=== PATIENT | male | born 1990 | race Caucasian/White ===

== ENCOUNTER 2019-01-25 12:43 | Emergency (ER) | payer MEDICAID ==
[2019-01-25] MEDS ORDERED: TDAP ADULT 0.5 ML INJ (BOOSTRIX) IM ONE (12:50)
--- NOTE | 2019-01-25 12:50 | EDPHY ---
H & P Time Seen by Provider: 01/25/19 12:43 HPI/ROS: CHIEF COMPLAINT: Seizure and chin laceration HISTORY OF PRESENT ILLNESS: Seizure disorder, has them about once a week, had another seizure today and cut his chin open. Therefore he is transported to the emergency department for evaluation. The patient says is feels sore all over. Patient says his jaw hurts and his neck hurts. Currently denies weakness or numbness in extremities or chest pain or shortness of breath. REVIEW OF SYSTEMS: Eye: no change in vision ENT: Jaw pain and difficulty with his bite. Cardiac: no chest pain or syncope Pulmonary: no cough or SOB Abdomen: no vomiting, diarrhea, abdominal pain Musculoskeletal: HPI Skin: Chin laceration Neuro: Mild headache, according to EMS the patient's seizures have become slightly more frequent and lasting longer per [facility]. Constitutional: no fever : no urinary symptoms A comprehensive 10 point review of systems is otherwise negative aside from elements mentioned in the history of present illness. PAST MEDICAL HISTORY: Seizure disorder, includes electrical implant left chest for vagus nerve stimulator. Social history: Resident at [facility]. General Appearance: Alert and conversant, cooperative. Eyes: No scleral icterus. Pupils equal reactive extraocular motion intact. ENT, Mouth: Patient has difficulty with clenching his teeth together but no intraoral bleeding. Respiratory: Normal respiratory effort, breath sounds equal, lungs are clear to auscultation. Cardiovascular: Regular rate and rhythm. Gastrointestinal: Abdomen is soft and non tender. Neurological: Alert, face symmetric, normal motor and sensory in extremities. Not tremulous. Follows commands. Appears oriented at this time. Skin: open chin laceration Musculoskeletal: No extremity or spinal tenderness except for mid cervical spine. Psychiatric: Not agitated. Emergency Department course/MDM: Attempted to anesthetize chin laceration but patient did not tolerate the injection initially, topical LET applied. Cervical spine CT and facial CT performed for trauma, head CT for worsening seizures. See note by Keyana ROJAS for laceration repair. 1502: Normal head and cervical spine CT per Dr. Blount, right sided jaw condylar fracture 2 mm displacement. Results discussed with the patient at this time. He seems comfortable. No intraoral bleeding. Phone consultation with oral surgery. 1525: Discussed with Dr. Sepulveda, recommends can be discharged, will be seen in office tomorrow for evaluation and possible definitive treatment. Confirmed [facility] can arrange transport. (Андрей Sy) Constitutional: Initial Vital Signs Temperature (C) 36.8 C 01/25/19 12:49 Heart Rate 73 01/25/19 12:49 Respiratory Rate 18 01/25/19 12:49 Blood Pressure 123/61 H 01/25/19 12:49 O2 Sat (%) 97 01/25/19 12:49 O2 Delivery Mode Room Air Allergies/Adverse Reactions: apple Allergy (Verified 01/25/19 12:52) Home Medications: Medication Instructions Recorded Aleve 01/25/19 Ativan 01/25/19 LaMICtal 01/25/19 Ranitidine HCl 01/25/19 Rizatriptan 01/25/19 Tizanidine HCl 01/25/19 Medical Decision Making - Diagnostics Imaging: Discussed imaging studies w/ order desk caller Radiologist - Diagnostics Imaging Results: Imaging Impressions Cervical Spine CT 01/25/19 12:55 Impression: 1. No definite cervical spine fracture. 2. If there is persistent pain or neurological deficit, recommend MR cervical spine and consider flexion and extension views, if clinically indicated. 3. Right mandibular condyle fracture. 4. Right anterior external auditory canal wall fracture. Findings and recommendations discussed with Emergency Department physician, Андрей Sy M.D., at 1500 hours, on January 25, 2019. Final report concurs with initial preliminary interpretation. Face CT 01/25/19 12:55 Impression: 1. Right mandibular condyle slightly displaced neck fracture. 2. Right mastoid bone anterior corner 5 mm fracture of the anterior wall of the external auditory canal. 3. Depressed comminuted bilateral nasal bone fracture. Findings and recommendations discussed with Emergency Department physician, АНДРЕЙ SY at 1500 hour, 01/25/2019. Final report concurs with initial preliminary interpretation. Head CT 01/25/19 12:55 Impression: 1. No intracranial hemorrhage or mass effect. 2. Right mandibular condyle slightly displaced neck fracture. 3. Right mastoid anterior corner 5-mm fracture of the anterior wall of the external auditory canal. 4. Depressed comminuted bilateral nasal bone fracture. Findings and recommendations discussed with Emergency Department physician, Андрей Sy M.D., at 1500 hours, on January 25, 2019. Final report concurs with initial preliminary interpretation. Procedures: Procedure: Laceration repair. I was requested by to perform wound closure I explained the indications, risks and benefits for both laceration repair and anesthetic administration. Verbal consent was obtained from the patient. The 3 cm laceration on the chin was anesthetized using 0.5% bupivicaine with epinephrine. After anesthetic administered the patient was observed for a period of time and had no apparent adverse effects. The wound was cleaned, prepped, draped in normal sterile fashion and explored to its base. No foreign body seen, no foreign bodies palpated. The wound was repaired with 8 simple interrupted 6 0 Prolene sutures. The wound repair was complex. The procedure was performed by myself. Patient has been informed that scarring will occur, although efforts have been made to minimize this. (Omid Houston) ED Course/Re-evaluation: 4:20 p.m., called the bedside. Physician certified surgical tech/first assistant Pradip melo was revising laceration repair went patient had a breakthrough seizure. He has a known history of seizure disorder with frequent breakthrough seizures. Patient had tonic-clonic activity lasting 2-3 minutes. Nursing staff had 2 mg of Ativan at the bedside on my arrival. This was given IM. Report to [facility] had been called for transport back to this facility. 5:30 p.m., the patient was re-evaluated, he was sleeping but easily arousable. Vital signs reviewed. Pulse oximetry is 94% on room air. Blood pressure 128/ 73. Heart rate of 92. Repeat neurologic Assessment is nonfocal. Transport from [facility] is currently at the bedside. They feel comfortable transporting him back to [facility]. [facility] staff have been alerted that he did have a seizure here in the emergency department. They will at meet transport on arrival and help with transfer of the patient into their facility. The staff at [facility] feel comfortable excepting this patient for return to their facility. The patient's remaining emergency department course under my care has been uneventful. The patient was discharged as above in good condition. (Mary Kate Downey) - Data Points Laboratory Results: Laboratory Results 01/25/19 12:45 01/25/19 12:45 01/25/19 01/25/19 12:45 12:45 WBC 8.58 10^3/uL 10^3/uL (3.80-9.50) RBC 4.66 10^6/uL 10^6/uL (4.40-6.38) Hgb 14.6 g/dL g/dL (13.7-17.5) Hct 44.9 % % (40.0-51.0) MCV 96.4 fL fL (81.5-99.8) MCH 31.3 pg pg (27.9-34.1) MCHC 32.5 g/dL g/dL (32.4-36.7) RDW 13.2 % % (11.5-15.2) Plt Count 262 10^3/uL 10^3/uL (150-400) MPV 10.2 fL fL (8.7-11.7) Neut % (Auto) 49.9 % % (39.3-74.2) Lymph % (Auto) 39.3 % % (15.0-45.0) [place] % (Auto) 6.2 % % (4.5-13.0) Eos % (Auto) 3.5 % % (0.6-7.6) Baso % (Auto) 0.9 % % (0.3-1.7) Nucleat RBC Rel Count 0.0 % % (0.0-0.2) Absolute Neuts (auto) 4.28 10^3/uL 10^3/uL (1.70-6.50) Absolute Lymphs (auto) 3.37 10^3/uL H 10^3/uL (1.00-3.00) Absolute Monos (auto) 0.53 10^3/uL 10^3/uL (0.30-0.80) Absolute Eos (auto) 0.30 10^3/uL 10^3/uL (0.03-0.40) Absolute Basos (auto) 0.08 10^3/uL 10^3/uL (0.02-0.10) Absolute Nucleated RBC 0.00 10^3/uL 10^3/uL (0-0.01) Immature Gran % 0.2 % % (0.0-1.1) Immature Gran # 0.02 10^3/uL 10^3/uL (0.00-0.10) Sodium 138 mEq/L mEq/L (135-145) Potassium 4.5 mEq/L mEq/L (3.5-5.2) Chloride 102 mEq/L mEq/L (97-110) Carbon Dioxide 18 mEq/l L mEq/l (22-31) Anion Gap 18 mEq/L H mEq/L (6-14) BUN 16 mg/dL mg/dL (7-23) Creatinine 0.9 mg/dL mg/dL (0.7-1.3) Estimated GFR > 60 Glucose 97 mg/dL mg/dL (70-100) Calcium 9.4 mg/dL mg/dL (8.5-10.4) Valproic Acid 65.0 mcg/mL mcg/mL (50.0-150.0) Medications Given: Discontinued Medications Acetaminophen (Tylenol) 650 mg PO EDNOW ONE Stop: 01/25/19 13:40 Last Admin: 01/25/19 13:42 Dose: 650 mg Diphtheria/Tetanus/Acell Pertussis (Boostrix) 0.5 ml IM .ONCE ONE Stop: 01/25/19 12:51 Last Admin: 01/25/19 13:10 Dose: 0.5 ml Lorazepam (Ativan Injection) 2 mg IM EDNOW ONE Stop: 01/25/19 16:26 Last Admin: 01/25/19 16:29 Dose: 2 mg Tetracaine/Epinephrine/Lidocaine (Let Gel Topical) 1 ea TP EDNOW ONE Stop: 01/25/19 12:56 Last Admin: 01/25/19 13:42 Dose: 1 ea Departure - Departure Disposition: Home, Routine, Self-Care Clinical Impression: Seizure disorder, Breakthrough seizure Laceration of chin Qualifiers: Encounter type: initial encounter Qualified Code(s): S01.81XA - Laceration without foreign body of other part of head, initial encounter Fracture, jaw closed, angle Qualifiers: Encounter type: initial encounter Laterality: right Qualified Code(s): S02.651A - Fracture of angle of right mandible, initial encounter for closed fracture Condition: Good Instructions: Laceration (ED), Jaw Fracture in Adults (ED), Epilepsy (ED) Additional Instructions: Wound Care Follow-Up: Removal of sutures in 5 days. Suture removal is complimentary in uncomplicated cases. Infection or abnormal findings would require reevaluation by the MD. In that case, you may be billed. Jaw fracture right side; soft diet until instructed otherwise by Dr. Sepulveda. See him in the office tomorrow for treatment of your jaw fracture. Referrals: CLARI SOLORZANO [Primary Care Provider] - As per Instructions Ovi Sepulveda DDS [Doctor of Dental Surgery] - As per Instructions
[2019-01-25] MEDS ORDERED: LET GEL TOPICAL 1 EA SYR TP ONE (12:55)
[2019-01-25 13:04] LABS: PLATELET COUNT 262 10^3/uL (150-400)
[2019-01-25] MEDS ORDERED: ACETAMINOPHEN 325 MG TAB PO ONE (13:39)
[2019-01-25] MEDS ORDERED: LORazepam 2 MG/ML INJ ONE (16:18)
[2019-01-25] MEDS ORDERED: LORazepam 2 MG/ML INJ IM ONE ×2 (16:25)
[2019-01-25 17:39] VITALS: BP 105/77
--- NOTE | 2019-01-26 11:21 | ASMTCMCOM ---
CM Note CM Note Notes: Follow up with Svetlana at regarding patient's ER visit yesterday and appointment today with Dr. Sepulveda at [facility]. Yumiko at [facility] contatced to confirm appointment time of 1230 and ER referral faxed per Irish's request to . Date Signed: 01/26/2019 11:20 AM Electronically Signed By:Sharda Velez RN
== END 2019-01-25 17:36 | disposition home or self-care (01) ==
PROC: 0HQ1XZZ Repair Face Skin, External Approach (ICD-10-PCS; principal; 2019-01-25)
DX: G40.909 Epilepsy, unspecified, not intractable, without status epilepticus (principal); S01.81XA Laceration without foreign body of other part of head, initial encounter; S02.611A Fracture of condylar process of right mandible, initial encounter for closed fracture; S02.2XXA Fracture of nasal bones, initial encounter for closed fracture; S09.91XA Unspecified injury of ear, initial encounter; W22.8XXA Striking against or struck by other objects, initial encounter; Y92.129 Unspecified place in nursing home as the place of occurrence of the external cause; Z23 Encounter for immunization
CPT/HCPCS: J2060

== ENCOUNTER 2019-03-12 19:10 | Emergency (ER) | payer MEDICAID | END 2019-03-12 19:40 | disposition home or self-care (01) ==